=== PATIENT | male | born 1990 | race Two or more races ===

== ENCOUNTER 2022-02-06 17:59 | Emergency (ER) | payer MEDICAID ==
[~2022-02-06] VITALS: Ht 170.2 cm; Wt 72.6 kg
[2022-02-06 20:15] VITALS: BP 131/72
== END 2022-02-06 20:44 | disposition home or self-care (01) ==
LOC: ER 17:59
DX: S93.402A Sprain of unspecified ligament of left ankle, initial encounter (principal); X58.XXXA Exposure to other specified factors, initial encounter; Y93.89 Activity, other specified; Y92.89 Other specified places as the place of occurrence of the external cause; Y99.8 Other external cause status
CPT/HCPCS: 73610